=== PATIENT | female | born 1965 | race Caucasian/White ===

== ENCOUNTER → 2016-11-20 | Outpatient (CLI) | payer OTHER | LOC: FIMAGING 12:04 | PROVIDERS: ATTEND Internal Medicine | DX: N64.4 Mastodynia (principal) | CPT/HCPCS: G0204 ==

== ENCOUNTER → 2016-11-26 | Outpatient (CLI) | payer OTHER | LOC: CLAB 09:05 | PROVIDERS: ATTEND Internal Medicine | DX: R07.81 Pleurodynia (principal); Q67.6 Pectus excavatum | CPT/HCPCS: 71020-PO ==